=== PATIENT | female | born 1960 | race Caucasian/White ===

== ENCOUNTER → 2023-03-26 15:40 | Outpatient (CLI) | payer BC, SELFPAY ==
--- NOTE | ~2023-03-26 | MR_ITS ---
MRI of the left shoulder Technique: Axial proton-density fat-sat images, coronal proton density fat-sat and T2 fat-sat images, and sagittal T1-weighted and T2 fat-sat images were acquired. Clinical History: Pain Findings: There is minimal degenerative change at the AC joint. Coracoclavicular, coracoacromial, and coracohumeral ligaments are intact. Supraspinatus and infraspinatus tendons are intact, without partial or full-thickness tear. There is moderate supraspinatus tendinosis. Subscapularis tendon is intact, with mild tendinosis. Tendon of th e long head of the biceps is intact. There is probable focal synovitis or debris in the biceps tendon sheath at the proximal aspect of the bicipital groove. There is superior labral tear, extending to the anterosuperior and posterior superior portions. Inferior glenohumeral ligament is intact. There is extensive high-grade chondromalacia the glenoid, w ith subchondral edema at the inferior glenoid. Small glenohumeral joint effusion is present. No fluid distention of the subacromial/subdeltoid bursa. No muscle atrophy or edema evident. Impression: SLAP tear of the labrum. Rotator cuff tendinosis without definite tear. Probable focal synovitis or debris in the biceps tendon sheath, as detailed above. Moderate degenerative change of the glenohumeral joint, with extensive high-grade chondromalacia of t he glenoid. Reviewed, dictated and finalized at [facility]. BOARDER Impression: SLAP tear of the labrum. Rotator cuff tendinosis without definite tear. Probable focal synovitis or debris in the biceps tendon sheath, as detailed abo ve. Moderate degenerative change of the glenohumeral joint, with extensive high-gra de chondromalacia of the glenoid.
== END ==
PROVIDERS: PCP Family Medicine; Visit Provider Nurse Practitioner Family
DX: S43.432A Superior glenoid labrum lesion of left shoulder, initial encounter (principal); M19.012 Primary osteoarthritis, left shoulder; M75.82 Other shoulder lesions, left shoulder
CPT/HCPCS: 73221

== ENCOUNTER 2023-06-06 10:35 | Observation (INO) | payer BC, SELFPAY ==
[2023-06-06] VITALS (8 sets, daily range): BP systolic 110–163; BP diastolic 78–93; PULSE 72–89; RESP 14–20; TEMP 36.1–36.8; O2SAT 95–98; BMI 23.1
--- NOTE | ~2023-06-06 | MR_ITS ---
EXAMINATION: MR brain/brain stem wo con DATE: 06/06/2023 15:55 INDICATION: Transient memory loss TECHNIQUE: Magnetic resonance imaging (MRI) of the brain and brainstem was performed without intraven ous contrast. Sequences included sagittal and axial T1-weighted SE, axial diffusion-weighted FS SE, a xial 3D SWAN, axial T2-weighted FLAIR, and axial T2-weighted FSE. Apparent diffusion coefficient (ADC ) maps were created. COMPARISON: CT dated 06/06/2023 FINDINGS: There are no areas of restricted diffusion to suggest acute infarction. Small old lacunar infarct at the medial right temporal lobe. No intracranial hemorrhage or abnormal intracranial mass lesion. Ther e are scattered areas of nonspecific increased T2-weighted signal intensity in the cerebral white mat ter, predominantly involving the deep and periventricular white matter. There are no intraparenchymal signal abnormalities seen on the other pulse sequences. The ventricles are symmetric and normal in s ize. There are no abnormal extra-axial fluid collections. Flow voids are seen in the cerebral arterie s on the T2-weighted sequences consistent with their expected patency. Visualized orbits and soft tis sues are unremarkable. IMPRESSION: 1. No acute intracranial process. 2. Small old lacunar infarct in the medial right temporal lobe. 3. Mild scattered nonspecific white matter T2 hyperintensity which is within normal limits for age an d likely sequela of chronic small vessel ischemic disease. Reviewed, dictated and finalized at location A. ATOR COATING FURNACE IMPRESSION: 1. No acute intracranial process. 2. Small old lacunar infarct in the medial right temporal lobe. 3. Mild scattered nonspecific white matter T2 hyperintensity which is within no rmal limits for age and likely sequela of chronic small vessel ischemic disease .
--- NOTE | ~2023-06-06 | CT_ITS ---
EXAMINATION: CT brain wo con DATE: 06/06/2023 10:48 INDICATION: 2 hours of confusion TECHNIQUE: Computed tomography (CT) of the head was performed without intravenous contrast. Sagittal and coronal reconstructions were performed. The mA was adjusted according to patient size. Iterative reconstruction technique was employed. The dose-length product was 681.00 mGy-cm. COMPARISON: None FINDINGS: No acute intracranial hemorrhage, acute infarction or abnormal extra axial fluid collection. There is mild scattered white matter hypoattenuation consistent with chronic small vessel ischemic disease. Ventricles are normal and symmetric. No mass/mass effect. The orbits, paranasal sinuses and mastoid a ir cells are normal. IMPRESSION: 1. Mild scattered white matter hypoattenuation consistent with chronic small vessel ischemic disease. No acute intracranial process. Reviewed, dictated and finalized at location A. ORK PROGRAMMER IMPRESSION: 1. Mild scattered white matter hypoattenuation consistent with chronic small ve ssel ischemic disease. No acute intracranial process.
--- NOTE | ~2023-06-06 | XR_ITS ---
XR chest 1V portable DATE: 06/06/2023 11:09 INDICATION: Confusion for 2 hours TECHNIQUE: Portable AP chest on 06/06/2023 at 1105 hours COMPARISON: None FINDINGS: Normal heart size. No hilar or mediastinal enlargement. No pulmonary infiltrate or consol idation, pulmonary vascular congestion or pleural effusion or pneumothorax. Osteopenia. Postoperative change of the lower cervical spine is included the very upper margin of the radiograph. Bilateral breast implants. IMPRESSION: No active cardiopulmonary disease Reviewed, dictated and finalized at location B. PENDENT FILM MAKER
--- NOTE | ~2023-06-06 | CT_ITS ---
EXAMINATION: CTA BRAIN/CAROTID DATE: 06/06/2023 10:54 INDICATION: Acute onset confusion TECHNIQUE: Computed tomographic angiography (CTA) of the head and neck was performed with 100 mL Omni paque-350 intravenous contrast. Multiplanar reconstructions and maximum intensity projection 3D-recon structions of the carotid arteries and of the intracranial arteries were created by the technologist on a separate workstation. Precontrast CT of the head was also obtained. Automated exposure control and iterative reconstruction technique were employed.The dose-length product was 937.73 mGy-cm. COMPARISON: None. FINDINGS: Carotid arteries: Aortic arch is normal in caliber with no evident atherosclerotic plaque or dissection. There is 0% st enosis of the right carotid bulb relative to normal distal artery lumen diameter (NASCET criteria). T here is tortuosity of the cervical portion of the right internal carotid artery cephalad to the carot id bulb. There is 40% stenosis of the left carotid bulb relative to normal distal artery lumen diamet er. Mild dependent atelectasis in the visualized upper lungs. Cervical soft tissues and superior medi astinum are unremarkable. Discectomies with likely prosthetic discs at C5-C6 and C6-C7. Intracranial arteries Right vertebral artery is dominant. Minimal atherosclerotic plaque at the left carotid siphon. There is no hemodynamically significant stenosis in the vertebral, basilar and internal carotid arteries. T here are no aneurysms identified. Both A1 and P1 segments are patent. Cerebral arterial arborizatio n appears symmetric. IMPRESSION: 1. 0% stenosis of the right carotid bulb relative to normal distal artery lumen diameter (NASCET crit eria). 2. 40% stenosis of the left carotid bulb relative to normal distal artery lumen diameter. 3. Unremarkable cerebral CT angiogram with no evident thrombosis, aneurysm or significant stenosis. Reviewed, dictated and finalized at location A. E GAMES DEALER IMPRESSION: 1. 0% stenosis of the right carotid bulb relative to normal distal artery lumen diameter (NASCET criteria). 2. 40% stenosis of the left carotid bulb relative to normal distal artery lumen diameter. 3. Unremarkable cerebral CT angiogram with no evident thrombosis, aneurysm or s ignificant stenosis.
--- NOTE | 2023-06-06 10:38 | ECG_ITS ---
Measurements Intervals [place] Rate: 79 P: 37 [place]: 139 QRS: 2 QRSD: 89 T: 41 QT: 353 QTc: 407 Interpretive Statements SINUS RHYTHM LOW QRS VOLTAGE IN PRECORDIAL LEADS [QRS DEFLECTION < 1.0 mV IN CHEST LEADS] OTHERWISE NORMAL ELECTROCARDIOGRAM NO PREVIOUS ECG AVAILABLE FOR COMPARISON Electronically Signed On 06-06-2023 15:23:05 PARLIAMENTARY ARCHIVIST by Paddy Colon M.D.
--- NOTE | 2023-06-06 10:39 | PC.NURSE ---
Pt arrived with , complaints of confusion x2 hours. states pt does not know what day it is.
[2023-06-06 10:53] LABS: Estimated Glomerular Filt Rate 56
[2023-06-06 11:11] LABS: Glucose Point of Care 93 mg/dl (65-105)
[2023-06-06 11:15] LABS: Basophils Absolute Auto 0.1 K/mm3 (0.0-0.1); Basophils Percent Auto 1.1 % (0.2-1.2); Eosinophils Absolute Auto 0.1 K/mm3 (0-0.3); Eosinophils Percent Auto 1.7 % (0-4.4); Hematocrit 38.6 % (37.0-47.0); Hemoglobin 12.2 g/dL (12.0-15.0); Immature Granulocyte Absolute 0.02 K/mm3 (0.00-0.031); Immature Granulocyte Percent A 0.3 % (0-0.5); Lymphocytes Absolute Auto 2.08 K/mm3 (0.9-3.2); Lymphocytes Percent Auto 27.8 % (18.3-44.2); Mean Corpuscular HGB Conc 31.6 g/dl (32-36); Mean Corpuscular Volume 95.1 fl (80-100); Mean Platelet Volume 9.2 fl (7.4-10.4); Monocytes Absolute Auto 0.6 K/mm3 (0.1-0.6); Monocytes Percent Auto 7.3 % (2.6-8.5); Neutrophils Absolute Auto 4.6 K/mm3 (1.3-6.7); Neutrophils Percent Auto 61.8 % (45.5-73.1); Platelet Count Result 274 k/mm3 (150-375); Red Blood Count 4.06 M/mm3 (4.2-5.4); Red Cell Distribution Width 12.6 % (11.5-14.5); White Blood Count 7.5 K/mm3 (4.5-10.0)
[2023-06-06 11:28] LABS: INR 0.9; Prothrombin Time 12.4 Seconds (11.1-14.7)
[2023-06-06 11:29] LABS: Alanine Aminotransferase 26 U/L (6-35); Albumin Level 3.6 g/dL (3.5-5.1); Alkaline Phosphatase 72 U/L (38-126); Anion Gap 5 mmol/L (8-16); Aspartate Amino Transferase 31 U/L (14-36); Bilirubin,Total 0.4 mg/dL (0.2-1.3); Blood Urea Nitrogen 15 mg/dL (7-17); Calcium 8.7 mg/dL (8.4-10.2); Carbon Dioxide 24 mmol/L (22-30); Chloride 105 mmol/L (98-107); Estimated CRCL calculation 50 ml/min; Estimated Glomerular Filt Rate > 60; Glucose 89 mg/dL (65-110); Partial Thromboplastin Time 28.4 SECONDS (22.3-36.8); Potassium 3.9 mmol/L (3.4-5.0); Sodium 134 mmol/L (137-145)
[2023-06-06 11:43] LABS: Troponin I < 0.012 ng/mL (0.000-0.034)
[2023-06-06] MEDS: ASPIRIN 325 MG TABLET PO (11:46)
[2023-06-06 12:08] LABS: Appearance Urine Clear (Clear); Bacteria Urine None Seen /hpf; Bilirubin Urine Negative (Negative); Color Urine Yellow (Yellow); Glucose Urine UA Negative (Negative); Ketones Urine Negative (Negative); Leukocyte Esterase Ur Negative LEU/UL (Negative); Nitrate Urine Negative (Negative); Non Pathogenic Casts 0-2; Protein Urine Negative (Negative); RBC Urine 0-2 /hpf (0-2); Squamous Epithelial Cell Urine None seen /hpf (Few); Urobilinogen Urine 0.2 mg/dL (<2.0); WBC Urine 0-5 /hpf; pH Urine 5.5 (5.0-9.0)
--- NOTE | 2023-06-06 12:11 | ED.AMS ---
HPI - Altered Mental Status General Chief Complaint: Altered Mental Status Stated Complaint: altered Time Seen by Provider: 06/06/23 10:43 History of Present Illness HPI narrative: Patient is a 62-year-old female who presents the ER with sudden onset altered mental status. He began 2 hours prior to arrival. Patient has no memory of what is been occurring today but can tell something was wrong. She does not know what the date is. She is having trouble forming new memories. She has no focal weakness or numbness to any arm or leg. No slurred speech. She is brought here by her significant other for stroke evaluation. Related Data Home Medications Medication Instructions Recorded Confirmed evolocumab 140 mg/mL subcutaneous 140 mg subcut [id number] 06/06/23 06/06/23 pen injector (Repatha SureClick) levothyroxine 112 mcg tablet 112 mcg PO QAM 06/06/23 06/06/23 Allergies Allergy/AdvReac Type Severity Reaction Status Date / Time No Known Allergies Allergy Verified 06/06/23 14:32 Review of Systems Review of Systems: ROS unobtainable: Yes unobtainable due to mental status [facility] Past Medical History Medical History (Updated 06/06/23 @ 19:40 by Ken Allison MD) Hyperlipidemia Hypothyroidism Irritable bowel syndrome with constipation Left carotid stenosis 40% noted on CT of the head and neck in 05/2023. Obstructive sleep apnea on CPAP Surgical History Surgical History (Updated 06/06/23 @ 14:10 by Jayne Zhong PA-C) History of breast augmentation History of cervical spinal surgery Disc replacement C5-C7 History of colonoscopy with polypectomy History of tubal ligation Social History Social History (Updated 06/06/23 @ 14:11 by Jayne Zhong PA-C) Social History: Surrogate medical decision maker: Flakito Ny, spouse. Code status: Full code. Smoking packs per day: 0.5 Smoking cigarettes per day: 10.0 Years smoked: 20 Smoking pack-years: 10.00 Smoking status: Former smoker Alcohol intake: current Drinks per week: 4 Substance use: never Do You Feel Safe in your Home?: Yes Lack of Transportation: No Lack of Food: Never True Current Housing: I Have Housing Concerned About Future Housing: No Difficulty Paying Gas/Electric Bills: No Difficulty Paying for Meds: No Currently Unemployed: No Education: Associate Degree Difficulty w/ Childcare or Family Care: No Living arrangements: with family Additional living arrangements comments: Lives with spouse in [place] Occupation/Education: occupation 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 HEAD: Normocephalic, atraumatic. EYES: PERRL and EOMI. ENT: Mucous membranes moist. NECK: Supple. CHEST: Clear to auscultation. No respiratory distress. HEART: Regular rate and rhythm. Normal peripheral pulses. ABDOMEN: Soft, nontender, nondistended. EXTREMITIES: Normal range of motion. No edema. SKIN: Warm, dry, no rash. NEURO: Alert and oriented x2. NIH stroke scale 0. No upper lower extremity drift. Normal [id number] testing. Normal finger-nose testing. No facial droop. No expressive aphasia or dysarthria. PSYCH: Normal mood and affect. Course Course Emergency Course: -Course: Neurology consulted. Admit to hospitalist service. -Co-morbidities complicating care: Hyperlipidemia on Repatha. -Social determinants of health: Lives at home unable to care for self. -External Chart Review: None -Hx from independent Sources: patient's significant other provided history. -Independent interpretation of studies: Unremarkable blood work and urine. Imaging of the head and neck with 40% left carotid stenosis. EKG without acute ischemia. -Interventions: Aspirin 325 mg. -Shared decision making / Disposition: Admit to hospitalist service for observation. Albertina
[2023-06-06 12:32] LABS: Add Urine Microscopic? YES; Specific Grav Ur 1.041 (1.001-1.035)
--- NOTE | 2023-06-06 14:03 | ADMGEN ---
This patient, Isabela Ny, was admitted to 2 Medical Room 260-. Patient/family oriented to hospital policies and general routines including ID bracelet, bed and alarms, visiting hours, pain management, procedures, bathroom and other care routines, personal items, smoking policy, room service/diet, and visiting hours. Information on how to activate the Rapid Response Team has been discussed. Patient/Family are encouraged to report perceived risks to care and to ask questions if they do not understand what they are told or what they should do.
--- NOTE | 2023-06-06 14:04 | PM.IMHP ---
H&P: HPI History of Present Illness Date/Time: 06/06/23 13:05 Chief Complaint: Memory loss. Narrative: This is a pleasant 62-year-old female with hyperlipidemia, hypothyroidism, and sleep apnea who presented to the emergency department for evaluation of memory loss. The patient provides the following history. Today she works from home due to the weather and sometime not long prior to arrival she started to feel off and I suddenly felt out of it and could not remember anything that happened this morning. When I see the patient she did not remember talking to her about coming to the emergency department, does not remember driving to the emergency department, and she does not remember what happened thereafter. She is having troubles forming new memories as well. Last night she was reportedly in her usual state of health and did engage in sexual intercourse with her . She did not do any strenuous activity this morning and denies fall, head trauma, recent illnesses, change in medications, etc.. She has never had similar symptoms. Currently she has no complaints but is frustrated about the situation. She denies vertigo, visual changes, headache, facial droop, slurred speech, difficulty swallowing, focal weakness, and paresthesias. She also denies chest pain, shortness a breath, palpitations, and sensations of racing heart. In the ED: Blood pressure on arrival was 163/93. CMP and CBC were pretty unremarkable although her sodium was a bit low 134. Urine had a high specific gravity but was otherwise unremarkable. CTA of the head and neck showed no evidence of thrombosis, aneurysm, or significant stenosis though 40% stenosis of the left carotid bulb was noted. EKG showed sinus rhythm with no acute ST segment depressions or elevations. She is being admitted in this setting for further workup. Review of Systems Review of Systems: Twelve systems were reviewed and are negative except for as per HPI. [facility] Past Medical History Medical History Hyperlipidemia Hypothyroidism Irritable bowel syndrome with constipation Left carotid stenosis 40% noted on CT of the head and neck in 05/2023. Obstructive sleep apnea on CPAP Surgical History Surgical History (Updated 06/06/23 @ 14:10 by Jayne Zhong PA-C) History of breast augmentation History of cervical spinal surgery Disc replacement C5-C7 History of colonoscopy with polypectomy History of tubal ligation Social History Social History (Updated 06/06/23 @ 14:11 by Jayne Zhong PA-C) Social History: Surrogate medical decision maker: Flakito Ny, spouse. Code status: Full code. Smoking packs per day: 0.5 Smoking cigarettes per day: 10.0 Years smoked: 20 Smoking pack-years: 10.00 Smoking status: Former smoker Alcohol intake: current Drinks per week: 4 Substance use: never Do You Feel Safe in your Home?: Yes Lack of Transportation: No Lack of Food: Never True Current Housing: I Have Housing Concerned About Future Housing: No Difficulty Paying Gas/Electric Bills: No Difficulty Paying for Meds: No Currently Unemployed: No Education: Associate Degree Difficulty w/ Childcare or Family Care: No Living arrangements: with family Additional living arrangements comments: Lives with spouse in [place] Occupation/Education: occupation 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
--- NOTE | 2023-06-06 15:30 | PC.NURSE ---
To MRI per wheelchair.
--- NOTE | 2023-06-06 15:55 | PC.NURSE ---
Returned to room per wheelchair from MRI.
[2023-06-07] VITALS (10 sets, daily range): BP systolic 120–129; BP diastolic 59–85; PULSE 67–84; RESP 16–20; TEMP 36.4–36.7; O2SAT 97–98
--- NOTE | 2023-06-07 | ECHO_ITS ---
Patient Info Name: Isabela Ny Age: 62 years : 1960 Gender: Female Ht: 65 in Wt: 138 lbs BSA: 1.70 m2 HR: 67 bpm BP: 121 / 64 mmHg Heart Rhythm: Sinus Rhythm Technical Quality: Good Exam Date: 06/07/2023 9:50 AM Exam Location: Echo Lab Patient Status: Inpatient Admit Date: 06/06/2023 Staff Ordering Physician: Dhruv Clemens APRN Clinical Research Tech: Abelino Rod RDCS Attending Provider: Hernandez Pearce MD Referring Physician: Sarath CARSON; Exam Type: CA echo doppler w bubble study Study Info Indications - TIA Complete two-dimensional, color flow and Doppler transthoracic echocardiogram is performed with agitated saline. Contrast/Agitated Saline Contrast/Ag. Saline: Agitated Saline Amount: --- ml Summary 1. Normal left ventricular size and systolic function without wall motion abnormalities. 2. Grade 1 diastolic noncompliance. 3. No valvular dysfunction. 4. Agitated saline contrast injection demonstrates no intracardiac shunt. Left Ventricle Left ventricular chamber dimension is normal. Left ventricular systolic function is normal, estimated at 60-65%. The left ventricular diastolic function is grade I diastolic dysfunction. Right Ventricle Right ventricular chamber dimension is normal. Left Atria Left atrial chamber dimension is normal. Right Atria Right atrial chamber dimension is normal. Atrial Septum Intact interatrial septum visualized by agitated saline imaging. Aortic Valve The aortic valve is normal. Pulmonic Valve The pulmonic valve is normal. Mitral Valve The mitral valve has normal leaflets. Tricuspid Valve The tricuspid valve leaflets are normal. Pericardium/Pleural The pericardium appears normal. Aorta The aortic root size at the sinus of Valsalva is normal. Left Ventricular Outflow Tract Name Value Normal LVOT 2D LVOT Diameter 1.9 cm LVOT Doppler LVOT Peak Gradient 4 mmHg LVOT Mean Gradient 2 mmHg LVOT VTI 24 cm LVOT VTI/AV VTI Ratio 1.0 LVOT Stroke Volume 65 ml LVOT CO 5.2 l/min LVOT CI 3.1 l/min/m2 Pulmonic Valve Name Value Normal RVOT Doppler RVOT Peak Gradient 2 mmHg PV Doppler PV Peak Gradient 2 mmHg Mitral Valve Name Value Normal MV Doppler MV Decel [place] 252 cm/s2 MV PHT 63 ms MV Area
[2023-06-07] MEDS: ACETAMINOPHEN 325 MG TABLET 650 MG PO ×4 (04:01→19:40)
[2023-06-07 05:49] LABS: Cholesterol 137 mg/dL (0-200); HDL Direct 55 mg/dL; Triglycerides 87 mg/dL (<150)
[2023-06-07 06:00] LABS: LDL Cholesterol Direct 61 mg/dL
[2023-06-07] MEDS: LEVOTHYROXINE SODIUM 112 MCG TABLET PO (06:01)
[2023-06-07 07:27] LABS: Free T4 Free Thyroxine Reflex 1.34 ng/dL (0.78-2.19)
[2023-06-07] MEDS: ASPIRIN 81 MG ENTERIC TABLET PO (09:18)
--- NOTE | 2023-06-07 09:48 | WPDNEURCNPN ---
Assessment and Plan Assessment and plan (1) Transient memory loss: Code(s): R41.3 - Other amnesia Status: Acute (2) Hypothyroidism: Code(s): E03.9 - Hypothyroidism, unspecified Status: Acute (3) Left carotid stenosis: Code(s): I65.22 - Occlusion and stenosis of left carotid artery Status: Acute (4) HLD (hyperlipidemia): Code(s): E78.5 - Hyperlipidemia, unspecified Status: Acute Plan Isabela Ny is a 62 year old female with a history of hyperlipidemia, hypothyroidism, DOROTHY presenting for transient memory loss. Transient global amnesia is a possibility as well as transient ischemic attack. Also considering focal seizure given encephalomalacia noted in the R tmeporal lobe, which can also present with memory changes/eladio vu type sensations/and overall feeling 'off'. Labs were significant for elevated TSH. I don't think that hypothyroidism is the cause of this event, but certainly does not help with cognition. I do not think at this point she needs to be on anti-seizure medication. If she has a similar event in the future or if her EEG has abnormalities, I would reconsider anti seizure medication at that time. I did discuss with her that she should not drive until she is episode free for at least six months. - Continue Aspirin 81mg daily - Levothyroxine will probably need to be adjusted given TSH - Check tox screen, B12, folate, thiamine level, A1c - LDL is at goal, continue Repatha - Obtain routine EEG -- can be done as outpatient - Obtain surface echocardiogram with bubble study as part of TIA work-up - Discussed driving restrictions as above Consult date: 06/07/23 Reason for consult: Atlered mental status HPI: Isabela Ny is a 62 year old female with a history of hyperlipidemia, hypothyroidism, DOROTHY presenting for transient memory loss. Yesterday, patient started to feel off, and then suddenly felt 'out of it' and could not remember anything that happened that morning. She did not remember talking to her about coming to the ER. She does not remember there ride to the ER, and she does not remember what happened in the ER as well. When she presented to the ER, her blood pressure was in the 140-160s. EKG showed sinus rhythm. CT head was negative for any acute changes. CTA brain/carotid showed 40% stenosis of the L carotid artery. She was AOx2 as documented in ER note. She was started on aspirin and subsequently admitted. UA was negative for UTI. Tox screen was not obtained. MRI brain done this morning shows a small old infarct in the medial R temporal lobe. Her LDL is 61. Her TSH is 7.130. Patient reports that the last thing she remembers from yesterday was talking to her boss and telling her that something wasn't right. The next thing she can remember is being in the MRI machine yesterday. The time between was about 7 hours. She does not remember walking into the ER or being driven to the ER. There were no reports of obvious seizure like activity. Patient feels that she is close to baseline, but not 100%. She denies any history of seizures. No family history of seizures. This has never happened before. She drinks about half a bottle of wine about three times a week. She denies any illicit drug use. Review of Systems Review of Systems: All systems reviewed & are unremarkable except as noted in HPI and below PMFSH Past Medical History Medical History Hyperlipidemia Hypothyroidism Irritable bowel syndrome with constipation Left carotid stenosis 40% noted on CT of the head and neck in 05/2023. Obstructive sleep apnea on CPAP Surgical History Surgical History History of breast augmentation History of cervical spinal surgery Disc replacement C5-C7 History of colonoscopy with polypectomy History of tubal ligation Social History Social History (Reviewed 06/07/23 @ 12:42 by Sr
--- NOTE | 2023-06-07 10:31 | PM.IMPN ---
Progress Note: A&P Assessment and Plan (1) TGA (transient global amnesia): Code(s): G45.4 - Transient global amnesia Status: Acute Assessment and Plan: Suspected cause event yesterday TIA or seizure is also differential (2) Transient memory loss: Code(s): R41.3 - Other amnesia Status: Acute Assessment and Plan: EEG ordered okay to obtain on outpatient basis per Neurology (3) Hyperlipidemia: Code(s): E78.5 - Hyperlipidemia, unspecified Status: Acute Assessment and Plan: Continue Repatha (4) Hypothyroidism: Code(s): E03.9 - Hypothyroidism, unspecified Status: Acute Assessment and Plan: Increase levothyroxine to 150 mcg daily (5) Left carotid stenosis: Code(s): I65.22 - Occlusion and stenosis of left carotid artery Status: Acute Assessment and Plan: Continue aspirin, continue Repatha, patient unable to tolerate statins (6) Obstructive sleep apnea on CPAP: Code(s): G47.33 - Obstructive sleep apnea (adult) (pediatric) Status: Acute Assessment and Plan: Long discussion regarding compliance with CPAP likely to improve headaches and restfulness. Plan Below is copied from Neurology note: Isabela Ny is a 62 year old female with a history of hyperlipidemia, hypothyroidism, DOROTHY presenting for transient memory loss. Transient global amnesia is a possibility as well as transient ischemic attack. Also considering focal seizure given encephalomalacia noted in the R tmeporal lobe, which can also present with memory changes/eladio vu type sensations/and overall feeling 'off'. Labs were significant for elevated TSH. I don't think that hypothyroidism is the cause of this event, but certainly does not help with cognition. I do not think at this point she needs to be on anti-seizure medication. If she has a similar event in the future or if her EEG has abnormalities, I would reconsider anti seizure medication at that time. I did discuss with her that she should not drive until she is episode free for at least six months. - Continue Aspirin 81mg daily - Levothyroxine will probably need to be adjusted given TSH - Check tox screen, B12, folate, thiamine level, A1c - LDL is at goal, continue Repatha - Obtain routine EEG -- can be done as outpatient - Obtain surface echocardiogram with bubble study as part of TIA work-up - Discussed driving restrictions as above Time Spent With Patient Time with patient: Greater than 35 minutes Subjective Date/time seen: 06/07/23 10:31 Interval history: Patient feels much better today still cannot remember much from yesterday. Long discussion at bedside regarding compliance with CPAP and the need to follow-up after discharge. Awaiting interpretation echocardiogram with bubble study prior to discharge. Review of Systems Review of Systems: All systems reviewed & are unremarkable except as noted in HPI and below Exam Narrative: General: Well-developed female in the semi-Dodd position in bed. HEENT: PERRL, EOMI. Sclera anicteric. Oral mucosa moist. Oropharynx clear. Neck: Supple. No obvious carotid bruits. Respiratory: Lungs are clear to auscultation bilaterally. Cardiovascular: Regular rate and rhythm with S1-S2. Gastrointestinal: Abdomen is soft, nontender, and nondistended with positive bowel sounds. Skin: Warm and dry. No rash or lesions on limited exam. Extremities: No cyanosis, clubbing, or edema. Radial and pedal pulses intact. Neurological: Awake alert oriented occasionally forgetting words that she was trying to speak. No motor or sensory neuro deficits. Psychiatric: Pleasant and cooperative. Still stressed that she has no memory of yesterday. Objective Data Vital Signs Vital Signs: Vital Signs - 24 hr 06/06/23 10:59 06/06/23 11:34 06/06/23 13:51 Temperature 36.8 C 36.7 C Pulse Rate 85 89 72 Respiratory Rate 16 18 14 Blood Pressure 163/93 H 133/83 150/82 H
[2023-06-07 13:27] LABS: Hemoglobin A1C 5.2 % (<5.7)
[2023-06-07 14:42] LABS: Amphetamine Screen Urine Negative (Negative); Barbiturate Screen Urine Negative (Negative); Benzodiazepines Screen Urine Negative (Negative); Cannabinoid Screen Urine Negative (Negative); Cocaine Screen Urine Negative (Negative); Methadone Screen Urine Negative (Negative); Opiate Screen Urine Negative (Negative); Phencyclidine Screen Urine Negative (Negative)
[2023-06-07 14:44] LABS: Folic Acid 7.2 ng/mL (2.76->20); Vitamin B12 > 1000.0 pg/mL (239-931)
[2023-06-08] VITALS: PULSE 105
[2023-06-08 03:25] VITALS: BP 101/53; PULSE 80; RESP 18; TEMP 36.4; O2SAT 99
[2023-06-08 04:00] VITALS: PULSE 73
[2023-06-08 05:32] LABS: Basophils Absolute Auto 0.1 K/mm3 (0.0-0.1); Basophils Percent Auto 0.8 % (0.2-1.2); Eosinophils Absolute Auto 0.2 K/mm3 (0-0.3); Hematocrit 40.6 % (37.0-47.0); Immature Granulocyte Absolute 0.03 K/mm3 (0.00-0.031); Immature Granulocyte Percent A 0.4 % (0-0.5); Lymphocytes Absolute Auto 2.64 K/mm3 (0.9-3.2); Lymphocytes Percent Auto 34.3 % (18.3-44.2); Mean Corpuscular Hemoglobin 30.3 pg (26-34); Mean Corpuscular Volume 94.6 fl (80-100); Monocytes Absolute Auto 0.6 K/mm3 (0.1-0.6); Monocytes Percent Auto 7.4 % (2.6-8.5); Neutrophils Absolute Auto 4.2 K/mm3 (1.3-6.7); Neutrophils Percent Auto 54.1 % (45.5-73.1); Platelet Count Result 271 k/mm3 (150-375); Red Blood Count 4.29 M/mm3 (4.2-5.4); Red Cell Distribution Width 12.5 % (11.5-14.5); White Blood Count 7.7 K/mm3 (4.5-10.0)
[2023-06-08 05:48] LABS: Alanine Aminotransferase 33 U/L (6-35); Albumin Level 3.7 g/dL (3.5-5.1); Alkaline Phosphatase 76 U/L (38-126); Anion Gap 5 mmol/L (8-16); Aspartate Amino Transferase 31 U/L (14-36); Bilirubin,Total 0.3 mg/dL (0.2-1.3); Blood Urea Nitrogen 14 mg/dL (7-17); Calcium 8.8 mg/dL (8.4-10.2); Carbon Dioxide 28 mmol/L (22-30); Chloride 108 mmol/L (98-107); Estimated CRCL calculation 56 ml/min; Estimated Glomerular Filt Rate > 60; Glucose 97 mg/dL (65-110); Magnesium 2.2 mg/dL (1.6-2.3); Sodium 141 mmol/L (137-145)
[2023-06-08] MEDS: LEVOTHYROXINE SODIUM 150 MCG TABLET PO (05:55)
--- NOTE | 2023-06-08 07:03 | PM.DS ---
DS: Admitting Diagnosis Discharge Date 06/08/2023 Admitting Diagnosis Transient memory loss, hyperlipidemia, hypothyroidism, left carotid stenosis, obstructive sleep apnea on CPAP DS: Discharge Diagnosis Discharge Diagnosis (1) Transient memory loss: Code(s): R41.3 - Other amnesia Status: Acute (2) Hyperlipidemia: Code(s): E78.5 - Hyperlipidemia, unspecified Status: Chronic (3) Hypothyroidism: Code(s): E03.9 - Hypothyroidism, unspecified Status: Chronic (4) Left carotid stenosis: Code(s): I65.22 - Occlusion and stenosis of left carotid artery Status: Chronic (5) Obstructive sleep apnea on CPAP: Code(s): G47.33 - Obstructive sleep apnea (adult) (pediatric) Status: Chronic (6) TGA (transient global amnesia): Code(s): G45.4 - Transient global amnesia Status: Suspected DS: Summary Hospital Course Hospital Course: This is a 62-year-old female patient with past history of hypothyroidism and hyperlipidemia who was admitted to the hospital after not acting right and having transient memory loss. Patient admitted for stroke/CVA workup. Patient saw Neurology and there was also concern for partial seizure. Started aspirin continue Repatha as patient does not tolerate statin meds and her lipid panel is controlled on her current Repatha dose. MRI was negative for acute stroke. Echocardiogram with bubble study was negative. Neurology once EEG obtained but okay with outpatient. Patient was instructed not to drive for 6 months or until cleared by Neurology. Status at Discharge Cognitive/behavioral status at discharge: Awake alert oriented and pleasant Functional status at discharge: independent ambulation Overall status at discharge: patient is back to baseline Time Spent with Patient Time attestation: Total time spent providing and/or coordinating discharge services: 35 minutes Time spent: Greater than 30 minutes Exam Narrative: General: Well-developed female in the semi-Dodd position in bed. HEENT: PERRL, EOMI. Sclera anicteric. Oral mucosa moist. Oropharynx clear. Neck: Supple. No obvious carotid bruits. Respiratory: Lungs are clear to auscultation bilaterally. Cardiovascular: Regular rate and rhythm with S1-S2. Gastrointestinal: Abdomen is soft, nontender, and nondistended with positive bowel sounds. Skin: Warm and dry. No rash or lesions on limited exam. Extremities: No cyanosis, clubbing, or edema. Radial and pedal pulses intact. Neurological: Awake alert oriented occasionally forgetting words that she was trying to speak. No motor or sensory neuro deficits. Psychiatric: Pleasant and cooperative. Still stressed that she has no memory of yesterday. DS: Data Data Completed and Pending Completed studies during hospitalization: Head CT, head neck CTA, chest x-ray, brain MRI, echocardiogram with bubble study Pending studies at discharge: EEG ordered outpatient Labs on day of discharge: Labs from last 24 hours 06/08/23 06/07/23 06/07/23 04:53 14:15 14:08 WBC 7.7 RBC 4.29 Hgb 13.0 Hct 40.6 MCV 94.6 MCH 30.3 MCHC 32.0 RDW 12.5 Plt Count 271 MPV 9.0 Immature Gran % (Auto) 0.4 Neut % (Auto) 54.1 Lymph % (Auto) 34.3 [place] % (Auto) 7.4 Eos % (Auto) 3.0 Baso % (Auto) 0.8 Lymph # (Auto) 2.64 [place] # (Auto) 0.6 Eos # (Auto) 0.2 Baso # (Auto) 0.1 Abs Immat Gran (auto) 0.03 Absolute Neuts (auto) 4.2 Absolute Nucleated RBC 0.0 Nucleated RBC % 0.0 Sodium 141 Potassium 4.0 Chloride 108 H Carbon Dioxide 28 Anion Gap 5 L BUN 14 Creatinine 0.80 Estim Creat Clear Calc 56 Estimated GFR > 60 Glucose 97 Hemoglobin A1c Calcium 8.8 Magnesium 2.2 Total Bilirubin 0.3 AST 31 ALT 33 Alkaline Phosphatase 76 Total Protein 6.0 L Albumin 3.7 Vitamin B1 Pending Vitamin B12 Folate Free T4 Total T
[2023-06-08] MEDS: ACETAMINOPHEN 325 MG TABLET 650 MG PO (07:58)
[2023-06-08 08:00] VITALS: PULSE 84
[2023-06-08] MEDS: ASPIRIN 81 MG ENTERIC TABLET PO (08:47)
[2023-06-12 10:52] LABS: Vitamin B1 27 nmol/L (8-30)
== END 2023-06-08 11:55 | disposition home or self-care (01) ==
LOC: ANHED 10:56 → ANH2MED 13:15
PROVIDERS: Nurse Practitioner; Physician Assistant; Admitting Provider Internal Medicine; Emergency Provider Emergency Medicine; PCP Family Medicine; Visit Provider Internal Medicine
DX: R41.3 Other amnesia (principal); I65.22 Occlusion and stenosis of left carotid artery; E78.5 Hyperlipidemia, unspecified; E03.9 Hypothyroidism, unspecified; K58.1 Irritable bowel syndrome with constipation; G47.33 Obstructive sleep apnea (adult) (pediatric); Z99.89 Dependence on other enabling machines and devices; F10.90 Alcohol use, unspecified, uncomplicated; Z87.891 Personal history of nicotine dependence; Z86.73 Personal history of transient ischemic attack (TIA), and cerebral infarction without residual deficits; Z79.899 Other long term (current) drug therapy
CPT/HCPCS: 36415; 70450; 70496; 70498; 70551; 71045; 80053; 80061; 80307; 81001; 82607; 82746; 82948; 83036; 83735; 84425; 84439; 84443; 84480; 84484; 85025; 85610; 85730; 93005; 93306; 96375; 99285; A9270; G0378; Q9967

== ENCOUNTER 2023-06-13 10:43 | Outpatient (CLI) | payer BC, SELFPAY ==
--- NOTE | 2023-06-15 13:24 | WPDNEUROLOGY ---
Neurology EEG Report General Information Date of Study: 06/13/23 TEST eeg DIAGNOSIS Transient global amnesia CONDITION OF RECORDING awake, drowsy and asleep. EEG NUMBER 24-32 CLINICAL HISTORY patient states she had an episode last week where she lost several hours of memory. Denies any loss of consciousness or slurring of words. Just not remembering and acting strangely. EEG DESCRIPTION Basic resting occipital frequency consists of low to medium voltage 9 to 11 hertz per 2nd alpha admixed with low-voltage 15 to 18 hertz per 2nd beta and multiple muscle artifacts and movement artifacts on the right side, Along with good davis posterior gradient. During drowsiness low-voltage beta activity seen diffusely admixed with waxing and waning theta activity . bilateral symmetrical sleep activity seen with admixture of beta theta and alpha evolving into bilateral symmetrical sleep spindles as well. Photic stimulation produced normal drive. Hyperventilation not done. Non paroxysmal. Nonfocal. Non lateralizing. IMPRESSION Normal record.
== END 2023-06-13 10:44 | disposition home or self-care (01) ==
PROVIDERS: PCP Family Medicine; Visit Provider Nurse Practitioner
DX: G45.4 Transient global amnesia (principal)
CPT/HCPCS: 95816

== ENCOUNTER 2024-01-23 14:47 | Outpatient (CLI) | payer BC, SELFPAY ==
--- NOTE | ~2024-01-23 | DEXA_ITS ---
Bone Density Report Name: KIA XIONG Age: 63 Sex: Female Ethnicity: White Date of : 1960 Indication: postmenopausal; screening for osteoporosis; parental hip fracture; height loss; Referring Provider: CRISTAL MERAZ Study: Bone densitometry was performed. Exam Date: January 23, 2024 Accession number: [id number] Bone Density: Region BMD T-score Z-score Classification AP Spine(L1-L4) 0.844 -1.8 -0.1 Osteopenia Femoral Neck (Left) 0.516 -3.0 -1.5 Osteoporosis Total Hip (Left) 0.716 -1.9 -0.6 Osteopenia Femoral Neck (Right) 0.497 -3.2 -1.7 Osteoporosis Total Hip (Right) 0.660 -2.3 -1.1 Osteopenia Femoral Neck Mean 0.506 -3.1 -1.6 Osteoporosis Total Hip Mean 0.688 -2.1 -0.9 Osteopenia World Health Organization criteria for BMD impression classify patients as: Normal (T-score at or above -1.0), Osteopenia (T-score between -1.0 and -2.5), or Osteoporosis (T-score at or below -2.5). 10-year Fracture Risk: FRAX not reported because: Some T-score for Spine Total or Hip Total or Femoral Neck at or below -2.5 Clinical Information Provided by Patient: Parent has had a hip fracture Has used the following medications: Boniva (i.e. ibandronate), Vitamin D, Calcium Patient maximum height was 65 Menopause Age: 42 Onset of menses at age 11 Number of children 3 Impression: The patient has osteoporosis, based on the Right Femoral Neck T-score. The patient has risk factors, including: parental hip fracture. Discussion: INCREASED RISK OF FRACTURE. BONE DENSITY IS UNDESIRABLY LOW AT ONE OR MORE SKELETAL SITES, CONSISTENT WITH POSTMENOPAUSAL OSTEOPOROSIS. This patient's lowest T-score meets the World Health Organization's (WHO) criteria for osteoporosis at one or more sites (T-score -2.5 or below). In untreated patients, the risk of osteoporotic fracture increases approximately two-fold for each 1.0 SD decrease in T-score. Low bone density is not the only risk factor for fracture; also consider factors such as patient's age, frailty or poor health, risk of falling, risk of injury, previous osteoporotic fracture, family history of osteoporosis, cigarette smoking, low body weight, etc. Not everyone with low bone mineral density has osteoporosis; osteomalacia and other metabolic bone disorders should also be considered. Patients who have osteoporosis should be evaluated for specific diseases and conditions (secondary causes) that may cause or contribute to bone loss. The [place] [employer] Endocrinologists (AACE) and National Osteoporosis Foundation (NOF) recommend pharmacologic intervention for all postmenopausal women whose T-score is in this range. The patient should follow a healthful lifestyle (good nutrition with adequate calcium and vitamin D, and appropriate weight-beari
== END 2024-01-23 14:48 | disposition home or self-care (01) ==
LOC: CHSIMG 14:52
PROVIDERS: PCP Family Medicine; Visit Provider Internal Medicine
DX: Z78.0 Asymptomatic menopausal state (principal); M85.89 Other specified disorders of bone density and structure, multiple sites; M81.0 Age-related osteoporosis without current pathological fracture
CPT/HCPCS: 77080

== ENCOUNTER 2024-06-18 01:07 | Day surgery (SDC) | payer OTHER, SELFPAY ==
[2024-06-16 09:40] VITALS: BMI 23.1
[2024-06-18 08:16] VITALS: BP 106/77; PULSE 94; RESP 16; TEMP 36; O2SAT 98
--- NOTE | 2024-06-18 08:23 | WPDANESEPPF ---
Anes - Initial Pre Proc Eval Procedure: Operation Date: 06/18/24 09:30 Proposed Procedures p Screening Colonoscopy - Mauro Youssef MD Date/Time: 06/18/24 08:23 Surgeon: Mauro Youssef MD Pre Op Diagnosis: Hx of polyps Patient Data Age: 63 Gender: F Height: 1.63 m Weight: 60.4 kg Last Vital Signs Temp 36.0 C L 06/18/24 08:16 Pulse 94 06/18/24 08:16 Resp 16 06/18/24 08:16 BP 106/77 06/18/24 08:16 Pulse Ox 98 06/18/24 08:16 O2 Del Method Room Air 06/18/24 08:16 Allergies Allergy/AdvReac Type Severity Reaction Status Date / Time No Known Allergies Allergy Verified 06/18/24 08:14 Home Medications ?Medication ?Instructions ?Recorded ?Confirmed ?Type evolocumab 140 mg/mL subcutaneous 140 mg subcut [id number] 06/06/23 06/16/24 History pen injector (Armin Boone) levothyroxine 100 mcg tablet 100 mcg PO DAILY #30 tabs 03/10/24 06/16/24 Rx cephalexin 250 mg capsule 250 mg PO Q12H 06/18/24 06/18/24 History Patient hx anesthesia problems: none Family hx anesthesia problems: none Results Review: All pre-operative results and documents have been reviewed as part of the pre-operative evaluation. [facility] Past Medical History Medical History Hyperlipidemia Hypothyroidism Irritable bowel syndrome with constipation Left carotid stenosis 40% noted on CT of the head and neck in 05/2023. Obstructive sleep apnea on CPAP Surgical History Surgical History History of breast augmentation History of cervical spinal surgery Disc replacement C5-C7 History of colonoscopy with polypectomy History of shoulder surgery (~07/08/23) History of tubal ligation Family History Family History Other Hypertension Social History Social History Social History: Surrogate medical decision maker: Flakito Ny, spouse. Code status: Full code. Caffeine-coffee Smoking packs per day: 0.5 Smoking cigarettes per day: 10.0 Years smoked: 30 Smoking pack-years: 15.00 Smoking status: Former smoker Alcohol intake: current Drinks per week: 2 Substance use: never Substance use type: does not use Do You Feel Safe in your Home?: Yes Lack of Transportation: No Lack of Food: Never True Current Housing: I Have Housing Concerned About Future Housing: No Difficulty Paying Gas/Electric Bills: No Difficulty Paying for Meds: No Currently Unemployed: No Education: Associate Degree Difficulty w/ Childcare or Family Care: No Living arrangements: with family Additional living arrangements comments: Lives with spouse in [place] Occupation/Education: occupation 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 Informed Consent: The patient's anesthetic plan and its attendant risks and benefits were discussed with the patient/family/POA. Questions were solicited and answers provided to the satisfaction of the patient/family/POA.
[2024-06-18] MEDS: LACTATED RINGERS 1,000 ML 150 ML IV CONT (08:26)
--- NOTE | 2024-06-18 09:10 | PM.IMHP ---
H&P: HPI History of Present Illness Date/Time: 06/18/24 09:10 Chief Complaint: History of colon polyps Narrative: The patient has a history of colonic polyps, the last colonoscopy was 5 years ago Review of Systems Review of Systems: All systems reviewed & are unremarkable except as noted in HPI and below PMFSH Past Medical History Medical History Hyperlipidemia Hypothyroidism Irritable bowel syndrome with constipation Left carotid stenosis 40% noted on CT of the head and neck in 05/2023. Obstructive sleep apnea on CPAP Surgical History Surgical History History of breast augmentation History of cervical spinal surgery Disc replacement C5-C7 History of colonoscopy with polypectomy History of shoulder surgery (~07/08/23) History of tubal ligation Family History Family History Other Hypertension Social History Social History Social History: Surrogate medical decision maker: Flakito Ny, spouse. Code status: Full code. Caffeine-coffee Smoking packs per day: 0.5 Smoking cigarettes per day: 10.0 Years smoked: 30 Smoking pack-years: 15.00 Smoking status: Former smoker Alcohol intake: current Drinks per week: 2 Substance use: never Substance use type: does not use Do You Feel Safe in your Home?: Yes Lack of Transportation: No Lack of Food: Never True Current Housing: I Have Housing Concerned About Future Housing: No Difficulty Paying Gas/Electric Bills: No Difficulty Paying for Meds: No Currently Unemployed: No Education: Associate Degree Difficulty w/ Childcare or Family Care: No Living arrangements: with family Additional living arrangements comments: Lives with spouse in [place] Occupation/Education: occupation 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 Spiritual care concerns: No Meds Home Medications and Allergies Home Medications ?Medication ?Instructions ?Recorded ?Confirmed ?Type evolocumab 140 mg/mL subcutaneous 140 mg subcut [id number] 06/06/23 06/16/24 History pen injector (Armin Boone) levothyroxine 100 mcg tablet 100 mcg PO DAILY #30 tabs 11/20/24 02/26/25 Rx cephalexin 250 mg capsule 250 mg PO Q12H 06/18/24 06/18/24 History Allergies Allergy/AdvReac Type Severity Reaction Status Date / Time No Known Allergies Allergy Verified 06/18/24 08:14 Vital Signs Vital Signs - 24 hr 06/18/24 08:16 Temperature 96.8 F L Pulse Rate 94 Respiratory Rate 16 Blood Pressure 106/77 Pulse Oximetry 98 Oxygen Delivery Room Air Exam Const: General: cooperative and healthy appearing Resp: Effort & Inspection: normal respiratory effort and able to speak in complete sentences Auscultation: clear to auscultation bilaterally Cardio: Rate: regular rate Rhythm: regular rhythm GI: Inspection: normal to inspection GI Palp: No No hepatosplenomegaly present Auscultation: normal bowel sounds Rectal Exam: deferred Skin: General skin exam: normal color Psych: Appearance: grossly normal Mental Status: mental status grossly normal Assessment and Plan Assessment and plan (1) History of colonic polyps: Code(s): Z86.0100 - Personal history of colon polyps, unspecified Status: Acute Assessment and Plan: The patient is deemed a good candidate for the procedure. Consent signed. Will proceed.
[2024-06-18 09:33] VITALS: BP 81/45; PULSE 75; RESP 17; O2SAT 95
[2024-06-18 09:43] VITALS: BP 99/69; PULSE 71; RESP 20; O2SAT 98
[2024-06-18 09:53] VITALS: BP 103/52; PULSE 77; RESP 20; O2SAT 99
== END 2024-06-18 10:05 | disposition home or self-care (01) ==
PROVIDERS: Visit Provider Internal Medicine Gastroenterology
PROC: 0DJD8ZZ Inspection of Lower Intestinal Tract, Via Natural or Artificial Opening Endoscopic (ICD-10-PCS; CPT 45378; principal; 2024-06-18 09:30)
DX: Z12.11 Encounter for screening for malignant neoplasm of colon (principal); Z86.0100 Personal history of colon polyps, unspecified; E78.5 Hyperlipidemia, unspecified; E03.9 Hypothyroidism, unspecified; G47.33 Obstructive sleep apnea (adult) (pediatric); Z99.89 Dependence on other enabling machines and devices; Z87.891 Personal history of nicotine dependence
CPT/HCPCS: 45378; J2704; J7120

== ENCOUNTER 2025-02-22 14:57 | Outpatient (CLI) | payer OTHER, SELFPAY ==
--- NOTE | ~2025-02-22 | DEXA_ITS ---
Bone Density Report Name: KIA XIONG Age: 64 Sex: Female Ethnicity: White Date of : 1960 Indication: postmenopausal; screening for osteoporosis; height loss; Referring Provider: CRISTAL MERAZ Study: Bone densitometry was performed. Exam Date: February 22, 2025 Accession number: [id number] Bone Density: Region BMD T-score Z-score Classification AP Spine(L1-L4) 0.863 -1.7 0.2 Osteopenia Femoral Neck (Left) 0.557 -2.6 -1.1 Osteoporosis Total Hip (Left) 0.713 -1.9 -0.6 Osteopenia Femoral Neck (Right) 0.533 -2.8 -1.3 Osteoporosis Total Hip (Right) 0.708 -1.9 -0.6 Osteopenia Femoral Neck Mean 0.545 -2.7 -1.2 Osteoporosis Total Hip Mean 0.711 -1.9 -0.6 Osteopenia World Health Organization criteria for BMD impression classify patients as: Normal (T-score at or above -1.0), Osteopenia (T-score between -1.0 and -2.5), or Osteoporosis (T-score at or below -2.5). 10-year Fracture Risk: FRAX not reported because: Some T-score for Spine Total or Hip Total or Femoral Neck at or below -2.5 Clinical Information Provided by Patient: Has used the following medications: Vitamin D Patient maximum height was 65 Menopause Age: 42 No regular weight bearing exercise Drinks caffeinated beverages Onset of menses at age 11 Number of children 3 Impression: The patient has osteoporosis, based on the Right Femoral Neck T-score. Discussion: INCREASED RISK OF FRACTURE. BONE DENSITY IS UNDESIRABLY LOW AT ONE OR MORE SKELETAL SITES, CONSISTENT WITH POSTMENOPAUSAL OSTEOPOROSIS. This patient's lowest T-score meets the World Health Organization's (WHO) criteria for osteoporosis at one or more sites (T-score -2.5 or below). In untreated patients, the risk of osteoporotic fracture increases approximately two-fold for each 1.0 SD decrease in T-score. Low bone density is not the only risk factor for fracture; also consider factors such as patient's age, frailty or poor health, risk of falling, risk of injury, previous osteoporotic fracture, family history of osteoporosis, cigarette smoking, low body weight, etc. Not everyone with low bone mineral density has osteoporosis; osteomalacia and other metabolic bone disorders should also be considered. Patients who have osteoporosis should be evaluated for specific diseases and conditions (secondary causes) that may cause or contribute to bone loss. The [place] Association of Clinical Endocrinologists (AACE) and National Osteoporosis Foundation (NOF) recommend pharmacologic intervention for all postmenopausal women whose T-score is in this range. The patient should follow a healthful lifestyle (good nutrition with adequate calcium and vitamin D, and appropriate weight-bearing exercise). Follow-Up: Consider a repeat BMD and Vertebral Fracture Assessment (VFA) exam in 2 years or sooner if medically necessary, to reassess this patient's status. Reported by: LISA on 02/22/2025 3:12:00 PM. Reviewed, dictated and finalized at location A.
--- OUTSIDE RECORDS SUMMARY | 2025-02-22 16:23 | XMS_ITS | Clinical Summary ---
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 Gender Identity Not on file Sexual Orientation Not on file Plan of Treatment Health Maintenance Due Date Last Done Comments DTAP/TDAP/TD VACCINES (1 - Tdap) 1977 COLORECTAL SCREENING 11/04/2003 Colorectal Cancer Screening 11/04/2003 FIT-DNA Q 3 years 11/04/2003 FIT/FOBT Q 1 year 11/04/2003 Flex Sig/CT Colonography Q 5 years 11/04/2003 PNEUMOCOCCAL VACCINE 50+ YEA RS (1 of 1 - PCV) 2008 ZOSTER VACCINE (1 of 2) 2008 BREAST CANCER SCREENING 02/15/2018 02/16/20 17, 02/15/2017, 02/17/2015, Additional history exists OSTEOPOROSIS SCREENING 11/04/2023 INFLUENZA VACCINE (#1) 2024 03/11/2019, 2016 RSV VACCINE (60+ or ) (1 - 1-dose 75+ series) 2033 Insurance [email or web address]
--- OUTSIDE RECORDS SUMMARY | 2025-02-22 16:23 | XMS_ITS | Encounter Summary ---
Author Organization [facility] Address [address] [place] [address] Care Team Providers Care Ad Writer Name Role Phone Gillian Alan MD Primary Care Provider [phone] Encounter Details Date Type Department Care Team (Late st Contact Info) Description 01/19/2021 Lab Requisition [facility] DermPath Lab [address] [place] [address] Pritesh Soliman Jr., MD [address] [place] [address] Social History Tobacco Use Types Packs/Day Years Used Date Smoking Tobacco: Former Smokeless Tobacco: Never Alcohol Use Standard Drinks/Week Comments Yes 7 (1 standard drink = 0.6 oz pur e alcohol) Comments No Sex and Gender Information Value Date Recorded Sex Assigned at Not on file Legal Sex Female 1:44 PM CDT Gender Identity Not on file Sexual Orientation Not on file documented as of this encounter Plan of Treatment Not on file documented as of this encounter Procedures Procedure Name Priority Date/Time Associated Diagnosis Comments DERMATOPATHOLOGY Routine 01/17/2021 12:0 0 AM CDT documented in this encounter Results * DERMATOPATHOLOGY (01/17/2021 12:00 AM CDT) Case Report Dermatopathology Report Case: [id number] Authorizing Provider: Pritesh Soliman Jr., MD Collected: 01/17/2021 12:00 AM Ordering Location: [facility] DermPath Lab Received: 01/19/2021 07:44 AM Pathologist: Luisa Hagan MD Specimens: A) - Skin, left proximal pretibial region B) - Skin, left central lateral neck C) - Skin, left clavicular neck 12:47 PM T DERMATOPATHOLOGY LABORATORY Final Diagnosis Specimen A. SKIN, left proximal pretibial region: SQUAMOUS CELL CARCINOMA, WELL DIFFERENTIATED (C44.729) Specimen B. SKIN, left central lateral neck: BASAL CELL CARCINOMA, PIGMENTED AND NODULAR (C44.41) Specimen C. SKIN, left clavicular neck: ACROCHORDON (SOFT FIBROMA, SKIN TAG) (L91.8) (see microscopic description) 12:47 PM T DERMATOPATHOLOGY LABORATORY at 1247 CDT Clinical History A: Verrucal keratosis. B: Basal cell carcinoma. C: Skin tag. . 12:47 PM T DERMATOPATHOLOGY LABORATORY Gross Description Specimen A: Received is one formalin filled container labeled with the patient's name and designated left proximal pretibial region. The specimen consists of a shave biopsy measuring [id number]. Jar 0. Specimen B: Received is one formalin filled container labeled with the patient's name and designated left central lateral neck. The specimen consists of a shave biopsy measuring [id number]. Jar 0. Specimen C: Received is one formalin filled container labeled with the patient's name and designated left clavicular neck. The specimen consists of a shave biopsy measuring [id number]. Jar 0. 12:47 PM T DERMATOPATHOLOGY LABORATORY Microscopic Description Specimen A. SKIN, left proximal pretibial region: Arising in the epidermis and extending into the dermis there are irregularly shaped aggregates of keratinocytes showing evidence of premature cornification. Specimen B. SKIN, left central lateral neck: There are aggregates of basaloid cells with a high nuclear to cytoplasmic ratio and peripheral palisading. There is abundant melanin. Specimen C. SKIN, left clavicular neck: There is a gently folded epidermis surrounding a connective tissue core in which fat and collagen are intermingled. Additional deeper sections were obtained and reviewed. 12:47 PM T DERMATOPATHOLOGY LABORATORY Disclaimer An external and internal positive and negative controls are appropriate for the histochemical, immunohistochemical and immunofluorescence stain(s) in this case (if any), except where stated explicitly. The performance characteristics of the stain(s) cited in this report were developed and its performance characteristic determined by the Dermatopathology Laboratory at [facility], directed by Dr. Jazmín Dillon. These tests need not be, and therefore are not, approved by the [place] Food and Drug Administration. The tests are used for clinical purposes. Billing Codes Specimen Charges Stain Charges 11134 52733 72240 1 1 1 12:47 PM CDT DERMATOPATHOLOGY LABORATORY Embedded Images 12:47 PM CDT DERMATOPATHOLOGY LABORATORY Pathology/Cytology TISSUE SPECIMEN FROM SKIN / Unknown 01/17/2021 01/19/2021 7:44 AM CDT Miscellaneous samples (specimen) TISSUE SPECIMEN FROM SKIN / Unknown 01/17/2021 01/19/2021 7:44 AM CDT Miscellaneous samples (specimen) TISSUE SPECIMEN FROM SKIN / Unknown 01/17/2021 01/19/2021 7:44 AM CDT Pritesh Soliman Jr., MD LAB - PATHOLOGY/CYTOLOG Y ORDERABLES Final Result DERMATOPATHOLOGY LABORATORY [facility] - Department of Dermatology [facility] Specialized Medicine [address] [place] [address], [address] [phone] documented in this encounter Visit Diagnoses Not on filedocumented in this encounter Care Teams Ad Writer Relationship Specialty Start Date End Date Gillian Alan MD [address] [place] [address] [address] [place] [id number] PCP - General Family Medicine 03/08/16 documented as of this encounter
--- OUTSIDE RECORDS SUMMARY | 2025-02-22 16:23 | XMS_ITS | Clinical Summary ---
Author Organization [facility] Address [address] [place] [address] Care Team Providers Care Special Education Secretary Name Role Phone Gillian Alan MD Primary Care Provider [phone] Source Comments [facility],non-owned Affiliates and Associated Physician Practices is amultiple site organization consisting of ambulatory clinics and hospital sitesin [place], [place], [place] and [place]. This disclosure is being madepursuant to the Care Everywhere program and may not contain all information available regarding this patient. Last updated 18.[facility] Allergies No known active allergies Medications * Be aware that medications may not be up to date on this document. Alwaysverify current medications with the patient. zolpidem (AMBIEN) 10 MG tablet Take 10 mg by mouth as needed 0 01/09/2016 Active ARMOUR THYROID 60 MG tablet Take 60 mg by mouth once daily 4 04/03/2018 Active vitamin D, ergocalciferol, (DRISDOL) 68652 UNITS capsule Take 1 capsule by mouth every 7 days 12 capsule 1 04/17/2018 Active Active Problems No known active problems Social History Tobacco Use Types Packs/Day Years Used Date Smoking Tobacco: Former Smokeless Tobacco: Never Alcohol Use Standard Drinks/Week Comments Yes 7 (1 standard drink = 0.6 oz pur e alcohol) Comments No Sex and Gender Information Value Date Recorded Sex Assigned at Not on file Legal Sex Female 1:44 PM CDT Gender Identity Not on file Sexual Orientation Not on file Last Filed Vital Signs Vital Sign Reading Time Taken Comments Blood Pressure 102/66 04/16/2018 10:25 AM HEARING SCREEN COORDINATOR Pulse - - Temperature - - Respiratory Rate - - Oxygen Saturation - - Inhaled Oxygen Concentration - - Weight 61.7 kg (136 lb) 04/16/2018 10:25 AM HEARING SCREEN COORDINATOR Height 160 cm (5' 3) 04/16/2018 10:25 AM HEARING SCREEN COORDINATOR Body Mass Index 24.09 04/16/2018 10:25 AM HEARING SCREEN COORDINATOR Plan of Treatment Health Maintenance Due Date Last Done Comments BONE DENSITY TESTING 1960 COLOGUARD (AGES 45-75) - COL ON CA SCREENING 1960 COLON MONITORING 1960 COLONOSCOPY - COLON CA SCREENING 1960 CT COLONOGRAPHY - COLON CA SCREENING 1960 Colorectal Cancer Screening 1960 FIT - COLON CA SCREENING 1960 FLEX SIG - COLON CA SCREENING 1960 LIPID TESTING 1960 MAMMOGRAM 1960 HEPATITIS C SCREENING 10/29/1976 DTAP/TDAP/TD VACCINES (1 - Tdap) 1977 PNEUMOCOCCAL VACCINE 50+ (1 of 1 - PCV) 2008 ZOSTER VACCINE (1 of 2) 2008 DEPRESSION SCREENING 04/21/2024 COVID-19 VACCINE (1 - 2023-2 5 season) 2024 INFLUENZA VACCINE (#1) 2024 01/19/2017 Respiratory Syncytial Virus (RSV) Vaccine Pt: or over 60 yrs (1 - 1-dose 75+ series) 2033 HEPATITIS B VACCINE Aged Out No longe r eligible based on patient's age to complete this topic HIB VACCINE Aged Out No longer eligi ble based on patient's age to complete this topic HPV VACCINE Aged Out No longer eligi ble based on patient's age to complete this topic MENINGOCOCCAL (Group B) VACC INE SHARED DECISION-MAKING Aged Out No longer eligibl e based on patient's age to complete this topic MENINGOCOCCAL GROUPS A/C/Y/W VACCINE Aged Out No longer eligible b ased on patient's age to complete this topic Insurance [employer] [facility] Member Subscriber Plan / Payer ( fective 2011-Present) Name:Isabela Xiong Relation to Subscriber:Self Name:ISABELA XIONG Payer ID:[id number] ([facility]) Type:PPO Address: [address] [place] [id number] [facility] Member Subscriber Plan / Payer (Ef fective 2011-Present) Name:Isabela Xiong Relation to Subscriber:Self Name:ISABELA XIONG Payer ID:[id number] (NA) Type:PPO Address: [address] [place] [id number] [place] [id number] * Guarantor: ISABELA XIONG Account Type Relation to Patient Date of Phone Billing Address Personal/Family Other [facility] [place] [id number] [place] [id number] [place] [address] [place] [address] [place] [address] [place] [address] Care Teams Special Education Secretary Relationship Specialty Start Date End Date Gillian Alan MD [facility] [place] [address] PCP - General Family Medicine 03/08/16
== END 2025-02-22 14:58 | disposition home or self-care (01) ==
LOC: CHSIMG 14:57
PROVIDERS: Visit Provider Internal Medicine
DX: Z78.0 Asymptomatic menopausal state (principal); M81.0 Age-related osteoporosis without current pathological fracture; M85.89 Other specified disorders of bone density and structure, multiple sites
CPT/HCPCS: 77080